=== PATIENT | male | born 1955 | race African-American/Black ===

== ENCOUNTER 2017-01-18 17:39 | Emergency (ER) | payer OTHER ==
[~2017-01-18] VITALS: Ht 185.4 cm; Wt 100.0 kg
[2017-01-18 17:42] VITALS: Ht 185.4 cm; Wt 100.0 kg
[2017-01-18] MEDS ORDERED: LIDOCAINE 4% CR TOP ONE (18:00)
[2017-01-18] MEDS ORDERED: IBUPROFEN 600 MG TAB PO ONE (18:00)
--- NOTE | 2017-01-18 18:52 | RADRPT ---
PROCEDURE: XR Left Foot. CLINICAL INDICATION: Left foot pain. TECHNIQUE: Three views. Frontal, lateral, and oblique. COMPARISON: None. FINDINGS: There is no fracture or dislocation. The soft tissues are normal. There is hallux valgus. There are degenerative changes of the first metatarsal phalangeal joint wit h joint space narrowing and osteophytes as well as subarticular sclerosis. There is no lytic or blastic lesion. There is no radiopaque foreign body. IMPRESSION: 1. Hallux valgus. 2. Degenerative changes of the first metatarsal phalangeal joint. 3. Otherwise unremarkable images of the left foot. RPTAT: QQ .Jose Hogue MD, MD Date Time Electronically viewed and signed by .Jose Hogue MD, on 01/18/2017 18:52 .R/
[2017-01-18] MEDS ORDERED: ACET1TAB40 PO (19:00)
[2017-01-18] MEDS ORDERED: CLOT30CR24 TOP (19:00)
[2017-01-18] MEDS ORDERED: BACTDS PO (19:00)
--- NOTE | 2017-01-18 19:03 | ERD ---
ER Documentation Chief Complaint Date/Time DATE: 01/18/17 TIME: 19:01 Chief Complaint BLISTER BETWEEN BIG TOE AND 2ND TOE LEFT FOOT HPI This 61-year-old male presents with a painful lesion between his left big and second toe. Been for 1-2 weeks. He denies any history of trauma, bleeding or discharge. ROS All systems reviewed and are negative except as per history of present illness. Medications Home Meds Active Scripts Clotrimazole* (Clotrimazole* AF) 1% - 30 Gm Cream.gm., 1 APPLIC TOP BID for 10 Days, TUB Prov:FRANCISCA YOST MD 01/18/17 Acetaminophen with Codeine (Acetaminophen-Cod #3 Tablet) 1 Each Tablet, 1 TAB PO Q6H Y for PAIN, #12 TAB Prov:FRANCISCA YOST MD 01/18/17 Sulfamethoxazole-Trimethoprim* (Bactrim* DS) 800-160 Mg Tab, 1 TAB PO BID for 7 Days, TAB Prov:FRANCISCA YOST MD 01/18/17 PMhx/Soc Medical and Surgical Hx: pt denies Medical Hx, pt denies Surgical Hx Hx Alcohol Use: No Hx Substance Use: No Hx Tobacco Use: No Smoking Status: Never smoker Physical Exam Vitals Vital Signs Date Time Temp Pulse Resp B/P Pulse Ox O2 Delivery O2 Flow Rate FiO2 01/18/17 17:42 97.8 90 20 159/67 99 Physical Exam Const: [] Alert, not ill-appearing. Head: Atraumatic Eyes: Normal Conjunctiva ENT: Normal External Ears, Nose and Mouth. Neck: Full range of motion..~ No meningismus. Resp: Clear to auscultation bilaterally Cardio: Regular rate and rhythm, no murmurs Abd: Soft, non tender, non distended. Normal bowel sounds Skin: No petechiae or rashes in the skin in between the left big and second toe there is a 0.5 cm callus type lesion without significant erythema, discharge or bleeding. Back: No midline or flank tenderness Ext: No cyanosis, or edema Neur: Awake and alert Psych: Normal Mood and Affect Results 24 hrs Laboratory Tests Test 01/18/17 18:34 Bedside Glucose 115mg/dL Current Medications Medications (Trade) Dose Ordered Sig/Kb Route PRN Reason Start Time Stop Time Status Last Admin Dose Admin Lidocaine (Lmx 4% Plus) 1 applic ONCE ONCE TOP 01/18/17 18:00 01/18/17 18:03 DC 01/18/17 18:26 Ibuprofen (Motrin) 600 mg ONCE ONCE PO 01/18/17 18:00 01/18/17 18:03 DC 01/18/17 18:26 Procedures/MDM X-ray left foot 3V Interpreted by me: Bones: [No fracture] Joints: [No dislocation] Foreign body: [None]. Impression have degenerative changes of the first metatarsophalangeal joint, otherwise no foreign body or acute findings per Procedure note-LMX was applied to the left big toe lesion. The lesion was debrided with forceps to the extent of the patient was able to tolerate. Patient was unable to tolerate local anesthesia. The wound was debrided. It has a clinical appearance of a callus or deep corn. The wound was dressed with Neosporin. Patient presents with a blister a corn or callus type lesion between his left first and second toe. He may need further debridement with a clinical cytogeneticist scientist. In the meantime we will treat with Bactrim and Lotrimin Tylenol 3 for pain. Patient was advised to return for fevers, redness, new worsening symptoms with primary doctor in podiatry for persistent symptoms. Signs and symptoms do not suggest osteomyelitis, fracture, dislocation, foreign body, tenosynovitis or sepsis. There is no evidence of ischemia. Departure Diagnosis: Primary Impression: Pain of toe Laterality: left Qualified Code: M79.675 - Pain of toe of left foot Condition: Stable Patient Instructions: What Are Corns and Calluses?, Blister Referrals: ELENA FOURNIER DPM, BABAK DPM Additional Instructions: Lesion on toe may need to be scraped further by clinical cytogeneticist scientist. See primary doctor clinical cytogeneticist scientist for persistent pain. Recheck otherwise for redness, fevers, new symptoms. FRANCISCA YOST MD Jan 18, 2017 19:03
== END 2017-01-18 19:20 | disposition home or self-care (01) ==
LOC: FTE 17:39
DX: M79.675 Pain in left toe(s) (principal)
CPT/HCPCS: 73630; 82962; Z7610

== ENCOUNTER 2017-09-17 15:50 | Emergency (ER) | payer OTHER ==
[~2017-09-17] VITALS: Ht 177.8 cm; Wt 90.2 kg
[~2017-09-17 15:50] MED LIST: ACET1TAB40 PO; BACTDS PO; CLOT30CR24 TOP
[2017-09-17 16:03] VITALS: Ht 177.8 cm; Wt 90.2 kg
[2017-09-17] MEDS ORDERED: CLIN-73 PO (19:46)
--- NOTE | 2017-09-22 00:19 | ERD ---
ER Documentation Chief Complaint Chief Complaint right ankle wound x 3 months HPI 8-year-old male with no past medical history presents with a chief complaint of bilateral leg swelling 3-6 months. Patient states that the area itches and is painful 3/10. Pain worse with pressure. Patient has not done anything to relieve the symptoms. No sick contacts. Denies fever, chills, numbness, tingling, loss of range of motion. Patient has no other complaints and describes no other associated manifestations. Nursing notes have been reviewed and are consistent with history given. ROS All systems reviewed and are negative except as per history of present illness. Medications Home Meds Active Scripts Clindamycin Hcl* (Clindamycin Hcl*) 300 Mg Capsule, 300 MG PO TID for 10 Days, CAP Prov:PJ BARROSO PA-C 09/17/17 Clotrimazole* (Clotrimazole* AF) 1% - 30 Gm Cream.gm., 1 APPLIC TOP BID for 10 Days, TUB Prov:FRANCISCA YOST MD 01/18/17 Acetaminophen with Codeine (Acetaminophen-Cod #3 Tablet) 1 Each Tablet, 1 TAB PO Q6H Y for PAIN, #12 TAB Prov:FRANCISCA YOST MD 01/18/17 Sulfamethoxazole-Trimethoprim* (Bactrim* DS) 800-160 Mg Tab, 1 TAB PO BID for 7 Days, TAB Prov:FRANCISCA YOST MD 01/18/17 Allergies Allergies: Coded Allergies: Penicillins (Verified Allergy, Unknown, 09/17/17) PMhx/Soc Medical and Surgical Hx: pt denies Surgical Hx History of Surgery: No Hx Neurological Disorder: No Hx Respiratory Disorders: Yes (asthama) Hx Cardiac Disorders: No Hx Psychiatric Problems: No Hx Miscellaneous Medical Probl: No Hx Alcohol Use: No Hx Substance Use: No Hx Tobacco Use: No Physical Exam Physical Exam Const: Overweight 8-year-old male in no acute distress Ext: Swollen 2+ nonpitting edema bilaterally. Erythematous. Mild tenderness to palpation and warmth of the right lower extremity. Mild lichenification. Skin: As noted in extremity exam Head: Atraumatic Eyes: Normal Conjunctiva. PERRLA, EOMI. Neck: Full range of motion..~ No meningismus. Resp: Equal chest expansion. No tripoding or use of accessory muscles. Cardio: Cap refill less than 2 seconds. Pulses 2+ bilaterally. Back: No midline or flank tenderness Neur: Awake and alert. Sensation intact. Psych: Normal Mood and Affect Procedures/MDM 8-year-old male presents with signs and symptoms most consistent with stasis dermatitis. No medical conditions. Has not seen a PCP in years. Warmth and tenderness palpation of the right lower extremity is consistent with possible cellulitis. Patient is allergic to amoxicillin. Patient will be given clindamycin. I recommended that the patient follow-up closely with PCP for further evaluation and possible referral to a specialist. No suspicion for spreading cellulitis, lymphangitis, systemic involvement/SBI. No suspicion for bony pathology or neurovascular compromise. I have spoke with the patient regarding their condition and future management. They have verbally responded that they understand their status and treatment plan. The patients vitals are stable, and their current condition is appropriate for discharge. The patient will be given discharge instructions with return precautions. Departure Diagnosis: Primary Impression: Stasis dermatitis Laterality: bilateral Qualified Code: I87.2 - Venous stasis dermatitis of both lower extremities Additional Impression: Cellulitis Site of cellulitis: extremity Site of cellulitis of extremity: lower extremity Laterality: unspecified laterality Qualified Code: L03.119 - Cellulitis of lower extremity, unspecified laterality Condition: Stable Patient Instructions: Cellulitis Additional Instructions: Follow up with your PCP within the next 1-3 days for a more thorough evaluation and a possible referral to a specialist. Return the the emergency department immediately if symptoms worsen or change. If you have any questions regarding medications, ask your pharmacist or us before you leave. If any adverse reactions occur while taking your medications, discontinue the treatment and return to the emergency department immediately. Take your medications as directed, and complete the entire course of treatment. PJ BARROSO PA-C Sep 22, 2017 00:19
== END 2017-09-17 19:56 | disposition home or self-care (01) ==
LOC: FTE 15:50
DX: I87.2 Venous insufficiency (chronic) (peripheral) (principal); L03.115 Cellulitis of right lower limb; J45.909 Unspecified asthma, uncomplicated
CPT/HCPCS: 99283

== ENCOUNTER 2018-01-15 05:04 | Emergency (ER) | END 2018-01-15 08:45 | disposition home or self-care (01) ==